=== PATIENT | male | born 1960 ===

== ENCOUNTER 2017-08-07 10:31 | Emergency (ER) | payer MEDICARE, MEDICAID ==
[2017-08-07 10:40] VITALS: RESP 18
--- NOTE | 2017-08-07 11:57 | C.PDOC ---
History Of Present Illness 56 y/o female, with past medical history of cardiomyopathy, arthritis, diabetes , and HTN, presents to Emergency Department for evaluation of right leg pain for the last 3 days. Pt states that his legs felt weak causing him to fall three times over the last few days. Pt denies any LOC, and states he remembers everything. (+) cough. Otherwise, denies any headache, head trauma, chest pain, shortness of breath, change in sensation, fever, or any other associated symptoms at this time. Time Seen by Provider: 08/07/17 11:29 Chief Complaint (Nursing): Lower Extremity Problem/Injury History Per: Patient History/Exam Limitations: no limitations Onset/Duration Of Symptoms: Days Current Symptoms Are (Timing): Still Present Recent travel outside of the [place]: No Additional History Per: Patient Past Medical History Reviewed: Historical Data, Nursing Documentation, Vital Signs Vital Signs: Last Vital Signs Temp 97.6 F 08/07/17 15:03 Pulse 72 08/07/17 16:23 Resp 18 08/07/17 16:23 BP 126/70 08/07/17 16:23 Pulse Ox 98 08/07/17 16:23 - Medical History PMH: Diabetes, HTN Family History: States: Unknown Family Hx - Social History Hx Alcohol Use: No Hx Substance Use: No - Immunization History Hx Tetanus Toxoid Vaccination: No Hx Influenza Vaccination: No Hx Pneumococcal Vaccination: No Review Of Systems Except As Marked, All Systems Reviewed And Found Negative. Constitutional: Negative for: Fever, Chills Cardiovascular: Negative for: Chest Pain, Palpitations Respiratory: Positive for: Cough. Negative for: Shortness of Breath, Hemoptysis , Sputum Gastrointestinal: Negative for: Nausea, Vomiting, Abdominal Pain, Diarrhea Musculoskeletal: Positive for: Leg Pain (right) Skin: Negative for: Rash, Bruising Neurological: Negative for: Weakness, Numbness, Headache, Dizziness Physical Exam - Physical Exam Appears: Non-toxic, No Acute Distress Skin: Warm, Dry, Other (hyperpigmentation to lower extremities) Head: Atraumatic, Normacephalic Eye(s): bilateral: Normal Inspection, EOMI Nose: Normal, Other (congestion) Oral Mucosa: Moist Throat: Normal, No Erythema, No Exudate Neck: Normal ROM, Supple Chest: Symmetrical Cardiovascular: Rhythm Regular, No Murmur Respiratory: Normal Breath Sounds, No Rales, No Rhonchi, No Wheezing Gastrointestinal/Abdominal: Soft, No Tenderness, Other (obese abdomen) Back: No CVA Tenderness Extremity: Normal ROM (FROM of right leg), Tenderness (tenderness to right thigh ), No Pedal Edema, No Calf Tenderness, Capillary Refill (<2 sec.), No Deformity , No Swelling Pulses: Left Dorsalis Pedis: Normal, Right Dorsalis Pedis: Normal Neurological/Psych: Oriented x3, Normal Speech, Normal Motor, Normal Sensation ED Course And Treatment - Laboratory Results Result Diagrams: 08/07/17 12:13 08/07/17 12:25 ECG: Interpreted By Me, Viewed By Me ECG Rhythm: Sinus Rhythm Rate From EC (bpm) O2 Sat by Pulse Oximetry: 96 (on RA) Pulse Ox Interpretation: Normal - Other Rad Hip/right pelvis x-ray X-Ray: Viewed By Me, Read By Radiologist Interpretation: Accession No. : [id number]. Patient Name / ID : SHERRI MARINELLI / [id number]. Exam Date : 08/07/2017 12:24:54 ( Approved ). Study Comment : Sex / Age : M / [id number]. Creator : Nehemiah Aguilar MD. Dictator : Nehemiah Aguilar MD. Clinical Research Scientist : Layout Former : Nehemiah Aguilar MD. Approver2 : Report Date : 14:06:58. My Comment : . Pelvis and right hip three views. History: Trauma. Comparison: None available. Findings: Right hip: Moderate degenerative changes of the right hip joint space with subchondral sclerosis and bony productive change. Productive change off the right superior bony acetabulum. No evidence for acute displaced fracture or dislocation. Moderate osteitis pubis. Degenerative changes in the lower lumbar spine. Productive change off the bilateral iliac crests. Moderate degenerative changes of the left hip joint space with subchondral sclerosis and osteophytosis. Impression: Prominent degenerative changes. If right hip pain persists, consider further evaluation with MRI to exclude radioccult fracture. CXR X-Ray: Viewed By Me, Read By Radiologist Interpretation: PROCEDURE: CHEST RADIOGRAPH, 1 VIEW. HISTORY: Shortness of breath. COMPARISON: None available. FINDINGS: LUNGS: Patchy increased markings at the left lung base may represent prominent epicardial fat pad versus mild atelectasis and or infiltrate. Correlation with lateral view may be helpful. Clinical correlation. PLEURA: No pneumothorax or pleural fluid seen. CARDIOVASCULAR: Normal. OSSEOUS STRUCTURES: No significant abnormalities. VISUALIZED UPPER ABDOMEN: Normal. OTHER FINDINGS: None. IMPRESSION: Patchy increased markings at the left lung base may represent prominent epicardial fat pad versus mild atelectasis and or infiltrate. Correlation with lateral view may be helpful. Clinical correlation. Right femur x-ray X-Ray: Viewed By Me, Read By Radiologist Interpretation: Right femur five views. History: Pain. Injury. Comparison: None available. Findings: Moderate degenerative changes of the right hip joint space with subchondral sclerosis and bony productive change. Moderate to severe degenerative changes in the medial compartment of the femorotibial joint space with subchondral sclerosis and osteophytosis. Mild patellofemoral compartment joint space narrowing at the knee joint. Prominent bony productive change at the superior and inferior bony patella anteriorly. Productive change at the anterior tibial tubercle. Productive change at the level of the proximal fibula at the level of the fibular styloid for which underlying acute osseous injury cannot entirely be excluded. Clinical correlation to site of pain. Impression: Moderate degenerative changes of the right hip joint space with subchondral sclerosis and bony productive change. Moderate to severe degenerative changes in the medial compartment of the femorotibial joint space with subchondral sclerosis and osteophytosis. Mild patellofemoral compartment joint space narrowing at the knee joint. Prominent bony productive change at the superior and inferior bony patella anteriorly. Productive change at the anterior tibial tubercle. Productive change at the level of the proximal fibula at the level of the fibular styloid for which underlying acute osseous injury cannot entirely be excluded. Clinical correlation to site of pain. If pain persists, consider MRI. - CT Scan/US Head CT Other Rad Studies (CT/US): Read By Radiologist, Radiology Report Reviewed CT/US Interpretation: PROCEDURE: CT HEAD WITHOUT CONTRAST. HISTORY: R/O Bleed. COMPARISON: None available. TECHNIQUE: Axial computed tomography images were obtained through the head/brain without intravenous contrast. Radiation dose: Total exam DLP = 1037 mGy-cm. This CT exam was performed using one or more of the following dose reduction techniques: Automated exposure control, adjustment of the mA and/or kV according to patient size, and/ or use of iterative reconstruction technique. FINDINGS: HEMORRHAGE: No intracranial hemorrhage. BRAIN: No mass effect or edema. Scattered focal lucencies in the subcortical and periventricular white matter suggestive for chronic microvascular ischemic change. Prominent focal hypoattenuation seen within the inferior right caudate head/right internal capsule measuring up to 1.4 x 0.9 centimeters suggestive for age-indeterminate infarction. Clinical correlation. Correlation with MRI may be helpful if clinically indicated. Small parenchymal calcifications seen at the right lateral aspect of the cerebellum on series 2, image 8. VENTRICLES: Unremarkable. No hydrocephalus. CALVARIUM: Unremarkable. PARANASAL SINUSES: Moderate mucosal thickening of the bilateral maxillary sinuses, sphenoid sinus, and ethmoid air cells. MASTOID AIR CELLS: Unremarkable as visualized. No inflammatory changes. OTHER FINDINGS : None. IMPRESSION: Prominent focal area of low attenuation seen within the inferior right caudate head/right internal capsule which may represent age- indeterminate infarction. This is best seen on series 4 images 23 through 28. Additional etiologies not excluded. Correlation with MRI may be helpful if clinically indicated. Chronic microvascular ischemic change. Punctate parenchymal calcifications seen in the right lateral aspect of the cerebellum. Prominent sinus mucosal disease. Progress Note: Blood work, head CT, CXR, right femur and hip x-ray, venous duplex scan of right lower extremity ordered and reviewed. Pt was given Toradol , IV fluids, and nebulizer treatment. On re-eval, patient is resting comfortably , and is in no acute distress. Pt requests to be discharge and states he feels well. he is able to able in the ED without weakness, dizziness or any difficulty. Patient was instructed to follow up with physician/clinic in 1-2 days for further evaluation and copies of workup given. Case discussed and pt was evaluated by Dr Harmon, agreed upon plan and discharge. Disposition - Disposition Disposition: HOME/ ROUTINE Disposition Time: 16:06 Condition: STABLE Additional Instructions: Follow up with your primary medical doctor or clinic in 2-5 days for further evaluation. Return to the emergency department at any time if symptoms persist or worsen. Prescriptions: Azithromycin [Zithromax] 250 mg PO DAILY #6 tab Instructions: Contusion in Adults (ED) Forms: [facility] (Armenian) - Clinical Impression Clinical Impression: Contusion of leg, URI (upper respiratory infection) - PA / DAM TENDER ASSISTANT / Resident Statement MD/DO has reviewed & agrees with the documentation as recorded. - Scribe Statement The provider has reviewed the documentation as recorded by the Scribe Ralph Winters All medical record entries made by the Magoibstephen were at my direction and personally dictated by me. I have reviewed the chart and agree that the record accurately reflects my personal performance of the history, physical exam, medical decision making, and the department course for this patient. I have also personally directed, reviewed, and agree with the discharge instructions and disposition.
[2017-08-07] MEDS ORDERED: Sodium Chloride 0.9% 1,000 ML IV ONE (12:00)
[2017-08-07] MEDS ORDERED: Albuterol 0.083% Inhal Sol (2.5 mg/3 mL) UD IH STA (12:04)
[2017-08-07] MEDS ORDERED: Albuterol 0.083% Inhal Sol (2.5 mg/3 mL) UD ONE (12:15)
[2017-08-07 12:23] LABS: BASO % 0.3 % (0.0-2.0); EOS # 0.2 K/uL (0.0-0.7); EOS % 2.4 % (0.0-4.0); HEMATOCRIT 40.9 % (34.0-47.0); LYMPH # 2.4 K/uL (1.0-4.3); LYMPH % 32.3 % (20.0-40.0); MEAN CORPUSCULAR HGB CONC 33.4 g/dL (33.0-37.0); MONO # 0.8 K/uL (0.0-0.8); MONO % 11.2 % (0.0-10.0); RED CELL DISTRIBUTION WIDTH 15.7 % (11.5-14.5); WHITE BLOOD COUNT 7.3 K/uL (4.8-10.8)
[2017-08-07 12:36] LABS: CHLORIDE 105 mmol/L (98-107)
[2017-08-07 12:37] LABS: POTASSIUM 4.6 mmol/L (3.6-5.2); SODIUM 140 mmol/L (132-148)
[2017-08-07 12:39] LABS: ALB/GLOB RATIO 1.2 (1.0-2.1); ALKALINE PHOSPHATASE 164 U/L (38-126); AST/SGOT 55 U/L (14-36); BILIRUBIN,TOTAL 0.7 mg/dL (0.2-1.3); CARBON DIOXIDE 22 mmol/L (22-30); GFR AFRICAN-AMERICAN > 60; TOTAL PROTEIN 7.8 g/dL (6.3-8.3)
[2017-08-07 12:40] LABS: ALT/SGPT 94 U/L (9-52); BLOOD UREA NITROGEN 20 mg/dL (7-17); CALCIUM 9.4 mg/dl (8.6-10.4); GLUCOSE,RANDOM 88 mg/dL (65-105)
--- NOTE | 2017-08-07 13:25 | RAD ---
PROCEDURE: CHEST RADIOGRAPH, 1 VIEW HISTORY: Shortness of breath COMPARISON: None available. FINDINGS: LUNGS: Patchy increased markings at the left lung base may represent prominent epicardial fat pad versus mild atelectasis and or infiltrate. Correlation with lateral view may be helpful. Clinical correlation. PLEURA: No pneumothorax or pleural fluid seen. CARDIOVASCULAR: Normal. OSSEOUS STRUCTURES: No significant abnormalities. VISUALIZED UPPER ABDOMEN: Normal. OTHER FINDINGS: None. IMPRESSION: Patchy increased markings at the left lung base may represent prominent epicardial fat pad versus mild atelectasis and or infiltrate. Correlation with lateral view may be helpful. Clinical correlation.
--- NOTE | 2017-08-07 14:08 | RAD ---
Pelvis and right hip three views History: Trauma. Comparison: None available. Findings: Right hip: Moderate degenerative changes of the right hip joint space with subchondral sclerosis and bony productive change. Productive change off the right superior bony acetabulum. No evidence for acute displaced fracture or dislocation. Moderate osteitis pubis. Degenerative changes in the lower lumbar spine. Productive change off the bilateral iliac crests. Moderate degenerative changes of the left hip joint space with subchondral sclerosis and osteophytosis. Impression: Prominent degenerative changes. If right hip pain persists, consider further evaluation with MRI to exclude radioccult fracture.
--- NOTE | 2017-08-07 14:23 | RAD ---
Right femur five views History: Pain. Injury. Comparison: None available. Findings: Moderate degenerative changes of the right hip joint space with subchondral sclerosis and bony productive change. Moderate to severe degenerative changes in the medial compartment of the femorotibial joint space with subchondral sclerosis and osteophytosis. Mild patellofemoral compartment joint space narrowing at the knee joint. Prominent bony productive change at the superior and inferior bony patella anteriorly. Productive change at the anterior tibial tubercle. Productive change at the level of the proximal fibula at the level of the fibular styloid for which underlying acute osseous injury cannot entirely be excluded. Clinical correlation to site of pain. Impression: Moderate degenerative changes of the right hip joint space with subchondral sclerosis and bony productive change. Moderate to severe degenerative changes in the medial compartment of the femorotibial joint space with subchondral sclerosis and osteophytosis. Mild patellofemoral compartment joint space narrowing at the knee joint. Prominent bony productive change at the superior and inferior bony patella anteriorly. Productive change at the anterior tibial tubercle. Productive change at the level of the proximal fibula at the level of the fibular styloid for which underlying acute osseous injury cannot entirely be excluded. Clinical correlation to site of pain. If pain persists, consider MRI.
--- NOTE | 2017-08-07 14:53 | CT ---
PROCEDURE: CT HEAD WITHOUT CONTRAST. HISTORY: R/O Bleed. COMPARISON: None available. TECHNIQUE: Axial computed tomography images were obtained through the head/brain without intravenous contrast. Radiation dose: Total exam DLP = 1037 mGy-cm. This CT exam was performed using one or more of the following dose reduction techniques: Automated exposure control, adjustment of the mA and/or kV according to patient size, and/or use of iterative reconstruction technique. FINDINGS: HEMORRHAGE: No intracranial hemorrhage. BRAIN: No mass effect or edema. Scattered focal lucencies in the subcortical and periventricular white matter suggestive for chronic microvascular ischemic change. Prominent focal hypoattenuation seen within the inferior right caudate head/right internal capsule measuring up to 1.4 x 0.9 centimeters suggestive for age-indeterminate infarction. Clinical correlation. Correlation with MRI may be helpful if clinically indicated. Small parenchymal calcifications seen at the right lateral aspect of the cerebellum on series 2, image 8. VENTRICLES: Unremarkable. No hydrocephalus. CALVARIUM: Unremarkable. PARANASAL SINUSES: Moderate mucosal thickening of the bilateral maxillary sinuses, sphenoid sinus, and ethmoid air cells. MASTOID AIR CELLS: Unremarkable as visualized. No inflammatory changes. OTHER FINDINGS: None. IMPRESSION: Prominent focal area of low attenuation seen within the inferior right caudate head/right internal capsule which may represent age-indeterminate infarction. This is best seen on series 4 images 23 through 28. Additional etiologies not excluded. Correlation with MRI may be helpful if clinically indicated. Chronic microvascular ischemic change. Punctate parenchymal calcifications seen in the right lateral aspect of the cerebellum. Prominent sinus mucosal disease.
[2017-08-07 15:28] VITALS: TEMP 97.6
[2017-08-07 16:24] VITALS: BP 126/70; PULSE 72
[2017-08-07 17:04] VITALS: O2SAT 96
== END 2017-08-07 16:24 | disposition home or self-care (01) ==
LOC: EDSEX 10:31 → C.ER 10:31
DX: S80.11XA Contusion of right lower leg, initial encounter (principal); W18.30XA Fall on same level, unspecified, initial encounter; Y93.9 Activity, unspecified; Y92.9 Unspecified place or not applicable; J06.9 Acute upper respiratory infection, unspecified; I10 Essential (primary) hypertension; E11.9 Type 2 diabetes mellitus without complications
CPT/HCPCS: 70450; 71010; 73502; 73552; 80053; 82550; 82553; 84484; 85025; 93971; 94640; 96361; 96374; 99285; J1885; J7040